=== PATIENT | male | born 1955 | race Caucasian/White ===

== ENCOUNTER 2023-07-25 08:56 | Day surgery (SDC) | payer BC, MEDICARE ==
[2023-07-25] MEDS ORDERED: Sodium Chloride 0.9% 10 ML Syringe FLUSH PRN (09:00)
[2023-07-25] MEDS: Lactated Ringers 1,000 ML IV SCH (09:39)
[2023-07-25] MEDS ORDERED: Propofol 200 MG/20 ML SDV ONE (10:02)
[2023-07-25] MEDS ORDERED: Midazolam 1 MG/ML 2 ML SDV ONE (10:03)
== END 2023-07-25 11:34 | disposition home or self-care (01) ==
LOC: LL.SDS 08:56
PROVIDERS: ATTEND Surgery
DX: Z12.11 Encounter for screening for malignant neoplasm of colon (principal); K57.30 Diverticulosis of large intestine without perforation or abscess without bleeding; E11.42 Type 2 diabetes mellitus with diabetic polyneuropathy; K21.9 Gastro-esophageal reflux disease without esophagitis; Z80.0 Family history of malignant neoplasm of digestive organs; Z79.4 Long term (current) use of insulin; Z79.82 Long term (current) use of aspirin; Z79.899 Other long term (current) drug therapy; Z88.0 Allergy status to penicillin; Z88.8 Allergy status to other drugs, medicaments and biological substances; E78.5 Hyperlipidemia, unspecified
CPT/HCPCS: 45378; 82947; J2250; J2704; J7120